=== PATIENT | male | born 1955 | race Hispanic/Latino ===

== ENCOUNTER 2021-07-19 09:03 | Day surgery (SDC) | payer OTHER ==
[~2021-07-19] VITALS: Ht 167.6 cm; Wt 72.6 kg
[~2021-07-19 09:03] MED LIST: CHOLESTEROL; SYNTHROID; [UNRECOGNIZED DRUG - REMARK]
[2021-07-19 10:42] VITALS: BP 130/71
== END 2021-07-19 10:45 | DRG 392 ==
LOC: ENDO 09:03
PROVIDERS: ATTEND Surgery
PROC: 0DB48ZX Excision of Esophagogastric Junction, Via Natural or Artificial Opening Endoscopic, Diagnostic (ICD-10-PCS; principal; 2021-07-19)
PROC: 0DB68ZX Excision of Stomach, Via Natural or Artificial Opening Endoscopic, Diagnostic (ICD-10-PCS; 2021-07-19)
DX: K29.50 Unspecified chronic gastritis without bleeding (principal); K22.70 Barrett's esophagus without dysplasia; K21.9 Gastro-esophageal reflux disease without esophagitis